=== PATIENT | male | born 2000 | race Caucasian/White ===

== ENCOUNTER 2019-12-17 20:38 | Emergency (ER) | payer BC, SELFPAY ==
[~2019-12-17] VITALS: Ht 188 cm; Wt 81.6 kg
[2019-12-17 20:39] VITALS: BP 144/97; Ht 188 cm; Wt 81.6 kg
== END 2019-12-17 21:23 | disposition home or self-care (01) ==
LOC: ED 20:38
DX: J02.9 Acute pharyngitis, unspecified (principal)
CPT/HCPCS: U0003-CS